=== PATIENT | male | born 1970 | race African-American/Black ===

== ENCOUNTER 2017-08-09 12:43 | Emergency (ER) | payer OTHER ==
[~2017-08-09] VITALS: Ht 185.4 cm; Wt 67.1 kg
[~2017-08-09 12:43] MED LIST: FOLIC ACID1 MG PO; PROTONIX40 M4 PO; VITAMIN B-1100 M1 PO
[2017-08-09 13:08] LABS: ABSOLUTE BASOPHILS 0.1 thou/uL (0.0-0.2); ABSOLUTE NEUTROPHILS 4.8 thou/uL (1.6-8.1); BASOPHILS 0.8 %; EOSINOPHILS 0.4 %; HEMATOCRIT 33.6 % (42.0-52.0); HEMOGLOBIN 11.2 gm/dL (14.0-18.0); LYMPHOCYTES 14.5 %; MCH 28.3 pg (26.0-34.0); MCHC 33.4 g/dL (28.0-37.0); MCV 84.6 fL (80.0-100.0); MONOCYTES 14.7 %; MPV 8.8 fl. (7.2-11.1); NUCLEATED RBCS 0 /100WBC; PLATELET COUNT* 174 thou/uL (150-400); POLYS 69.6 %; RBC 3.98 mil/uL (4.50-6.00); RDW-CV 15.1 % (10.5-14.5); WBC 6.9 thou/uL (4.0-11.0)
[2017-08-09 13:33] LABS: ALKALINE PHOSPHATASE 79 U/L (46-116); ANION GAP 8 mmol/L (7-16); BUN 11 mg/dL (7-18); CALCIUM 8.8 mg/dL (8.5-10.1); CHLORIDE 100 mmol/L (98-107); CO2 27 mmol/L (21-32); GLUCOSE 115 mg/dL (70-99); LIPASE 105 U/L (73-393); MAGNESIUM 1.8 mg/dL (1.8-2.4); SGOT 73 U/L (15-37); SGPT 45 U/L (30-65); SODIUM 135 mmol/L (136-145); TOTAL BILIRUBIN 1.1 mg/dL (<0.1-1.0); TROPONIN-I LEVEL <0.06 ng/mL (<0.06)
[2017-08-09 13:51] LABS: ALBUMIN 3.9 g/dL (3.4-5.0); CREATININE 0.8 mg/dL (0.6-1.3); NT-PRO BRAIN NAT PEPTIDE 41 pg/mL (<300)
[2017-08-09] MEDS ORDERED: NORCO 5-325 TA1 EACH PO (14:23)
[2017-08-09 15:46] VITALS: BP 99/68
--- NOTE | 2017-08-10 17:06 | EKG ---
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 08/10/17 1706 1247 1247 Aubrey Lozada MD, FACC /EPI
--- NOTE | 2017-08-10 17:07 | EKG ---
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
--- NOTE | 2017-08-10 17:07 | EKG ---
[place] [address] ELECTROCARDIOGRAM REPORT Name: AIMEE CASTILLO 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
== END 2017-08-09 15:48 | disposition home or self-care (01) ==
LOC: M.ERS 12:43
PROVIDERS: Emergency Medicine Emergency Medical Services
DX: R07.9 Chest pain, unspecified (principal)

== ENCOUNTER 2019-12-01 10:34 | Emergency (ER) | payer OTHER ==
[~2019-12-01] VITALS: Ht 185.4 cm; Wt 65.8 kg
[~2019-12-01 10:34] MED LIST changes: +NORCO 5-325 TA1 EACH PO
[2019-12-01] MEDS ORDERED: FLEXERIL PO (12:45)
[2019-12-01] MEDS ORDERED: MEDROLDOSEPACK PO (12:45)
[2019-12-01] MEDS ORDERED: NORCO 5-325 TA1 EAC2 PO (12:45)
[2019-12-01 12:55] VITALS: BP 132/73
== END 2019-12-01 12:55 | disposition home or self-care (01) ==
LOC: M.ERS 10:34
DX: M51.36 Other intervertebral disc degeneration, lumbar region (principal); M54.31 Sciatica, right side

== ENCOUNTER 2019-12-04 06:34 | Emergency (ER) | payer OTHER ==
[~2019-12-04] VITALS: Ht 185.4 cm; Wt 65.8 kg
[~2019-12-04 06:34] MED LIST changes: +FLEXERIL PO; +MEDROLDOSEPACK PO; +NORCO 5-325 TA1 EAC2 PO
[2019-12-04 07:31] LABS: URINE BILIRUBIN NEGATIVE (Negative); URINE BLOOD TRACE (Negative); URINE CLARITY CLEAR; URINE COLOR YELLOW; URINE GLUCOSE-RANDOM NEGATIVE (Negative); URINE KETONES NEGATIVE (Negative); URINE LEUKOCYTES-REFLEX NEGATIVE (Negative); URINE NITRITE-REFLEX NEGATIVE (Negative); URINE PROTEIN NEGATIVE (Negative); URINE SPECIFIC GRAVITY 1.015 (1.005-1.030)
[2019-12-04 07:39] LABS: AMP/METHAMP Negative (Negative); BARBITURATES Negative (Negative); BENZODIAZEPINES Negative (Negative); COCAINE Negative (Negative); METHADONE Negative (Negative); OPIATES POSITIVE (Negative); PCP Negative (Negative); THC Negative (Negative)
[2019-12-04 07:48] LABS: HEMATOCRIT 30.1 % (42.0-52.0); HEMOGLOBIN 10.3 gm/dL (14.0-18.0); MCH 29.5 pg (26.0-34.0); MCHC 34.3 g/dL (28.0-37.0); MCV 86.1 fL (80.0-100.0); MPV 8.4 fl. (7.2-11.1); NUCLEATED RBCS 0 /100WBC; PLATELET COUNT* 117 thou/uL (150-400); RDW-CV 13.9 % (10.5-14.5); WBC 4.2 thou/uL (4.0-11.0)
[2019-12-04 08:00] LABS: CALCIUM 8.3 mg/dL (8.5-10.1); CREATININE 0.9 mg/dL (0.6-1.3)
[2019-12-04 08:02] LABS: ALCOHOL 68 mg/dL (<10); SALICYLATE < 2.8 mg/dL (2.8-20.0)
[2019-12-04 08:04] LABS: ALBUMIN 3.4 g/dL (3.4-5.0); TOTAL BILIRUBIN 0.5 mg/dL (<0.1-1.0); TOTAL PROTEIN 8.2 g/dL (6.4-8.2)
[2019-12-04 08:08] LABS: POTASSIUM 2.9 mmol/L (3.5-5.1)
[2019-12-04 08:21] LABS: ACETAMINOPHEN < 2 ug/mL (10-30)
[2019-12-04 08:46] VITALS: BP 141/77
[2019-12-04 09:01] LABS: ABSOLUTE EOSINOPHILS 0.2 thou/uL (0.0-0.7); ABSOLUTE LYMPHOCYTES 1.6 thou/uL (0.8-5.3); ABSOLUTE MONOCYTES 0.4 thou/uL (0.0-1.2); ATYPICAL LYMPHS 9 %; PLATELET ESTIMATE ADEQUATE
== END 2019-12-04 08:46 | disposition home or self-care (01) ==
LOC: M.ERS 06:34
PROVIDERS: Family Medicine
DX: F10.129 Alcohol abuse with intoxication, unspecified (principal); Y90.3 Blood alcohol level of 60-79 mg/100 ml; Z79.899 Other long term (current) drug therapy

== ENCOUNTER 2020-07-01 10:44 | Emergency (ER) | payer OTHER ==
[~2020-07-01] VITALS: Ht 185.4 cm; Wt 63.5 kg
[2020-07-01] MEDS ORDERED: NORCO5 PO (11:46)
[2020-07-01] MEDS ORDERED: IBUPROFEN 600600 M1 PO ×2 (11:46→12:00)
[2020-07-01] MEDS ORDERED: APAP W/CODEINE1 TA2 PO ×2 (11:55→12:00)
[2020-07-01 12:08] VITALS: BP 112/71
== END 2020-07-01 12:09 | disposition home or self-care (01) ==
LOC: M.ERS 10:44
DX: S82.832A Other fracture of upper and lower end of left fibula, initial encounter for closed fracture (principal); W20.8XXA Other cause of strike by thrown, projected or falling object, initial encounter; Y93.89 Activity, other specified; Y92.098 Other place in other non-institutional residence as the place of occurrence of the external cause; Y99.8 Other external cause status